=== PATIENT | female | born 1945 | race Two or more races ===

== ENCOUNTER 2021-06-12 09:37 | Emergency (ER) | payer OTHER ==
[~2021-06-12] VITALS: Ht 160 cm; Wt 70.3 kg
[2021-06-12] MEDS ORDERED: MOTRIN IB200 M1 (09:46)
[2021-06-12] MEDS ORDERED: AMOX1TAB5 PO (09:46)
== END 2021-06-12 11:03 | disposition home or self-care (01) ==
LOC: ER 09:37
DX: K08.89 Other specified disorders of teeth and supporting structures (principal)